=== PATIENT | female | born 1980 | race Caucasian/White ===

== ENCOUNTER 2020-03-23 09:25 | Day surgery (SDC) | payer OTHER ==
[~2020-03-23] VITALS: Ht 162.6 cm; Wt 105.1 kg
[~2020-03-23 09:25] MED LIST: AMITRIPTYLINE H25 M1 PO; DOXYCYCLINE 10100 MG PO; FLOVENT 110MCG7.9 GM IH; HCTZ 25MG TAB25 MG PO; PROTONIX 40MG T40 MG PO; ZOFRAN4 M1 PO
[2020-03-23 10:11] VITALS: BP 154/92; PULSE 106; TEMP 99.1
[2020-03-23] MEDS ORDERED: ACCOLATE 220 MG/1 TA PO (10:28)
[2020-03-23] MEDS ORDERED: AMITRIPTYLINE H50 M1 PO (10:28)
[2020-03-23] MEDS ORDERED: XYZAL5 MG PO (10:30)
[2020-03-23] MEDS ORDERED: [UNRECOGNIZED DRUG - OTHER] PO (10:31)
[2020-03-23] MEDS ORDERED: LYSINE 500500 MG/TAB PO (10:32)
[2020-03-23] MEDS ORDERED: [UNRECOGNIZED DRUG - OTHER] PO (10:33)
[2020-03-23] MEDS ORDERED: VITAMIN B COMPL1 T16 PO (10:34)
[2020-03-23] MEDS ORDERED: [UNRECOGNIZED DRUG - OTHER] PO (10:35)
[2020-03-23] MEDS ORDERED: NATURE'S BL400 IU/ML PO (10:36)
[2020-03-23] MEDS ORDERED: [UNRECOGNIZED DRUG - OTHER] PO (10:37)
[2020-03-23] MEDS ORDERED: VITAMINC1000TA PO (10:37)
[2020-03-23 11:23] VITALS: BP 117/72; PULSE 82; PULSE 84; TEMP 98.8
--- NOTE | 2020-03-23 11:23 | NUR ---
Pt to [facility] via cart from ENDO. Pt awake and alert. Pt denies pain or nausea. Pt ambulates to recliner with stand by assistance. in room. Water and muffin provided per request. Call light within reach.
[2020-03-23 11:31] VITALS: BP 117/77; PULSE 81
--- NOTE | 2020-03-23 11:32 | NUR ---
PT RETURNED PER CART. PT ALERT, ORIENTATED AND SLEEPY. PT DENIES NAUSEA AND STATES DOME CRAMPING IN THE LOWER RIGHT QUADRANT. DENIES SEVERE PAIN. LUNGS CLEAR, HRR, BOWEL SOUNDS PRESENT AND HYPOACTIVE. VSS, AFEBRILE. WILL MONITOR.
[2020-03-23 11:40] VITALS: BP 117/77; PULSE 81
--- NOTE | 2020-03-23 11:40 | NUR ---
Pt continues to rest. Tolerating po food and fluids without difficulties. Call light within reach.
[2020-03-23 11:55] VITALS: BP 119/75; PULSE 82
--- NOTE | 2020-03-23 11:55 | NUR ---
Pt continues to rest and visit with her . Denies needs. Dr. Calderon into consult with pt.
[2020-03-23 12:10] VITALS: BP 125/82; PULSE 79
--- NOTE | 2020-03-23 12:10 | NUR ---
Discharge instructions reviewed. Pt voices understanding. IV site discontinued with all parts intact. Pt up to dress. Call light within reach.
--- NOTE | 2020-03-23 12:30 | NUR ---
Pt escorted to private car via wheel chair. Pt accompanied home by her .
== END 2020-03-23 12:30 | disposition home or self-care (01) ==
LOC: SDCO 09:25
DX: K52.89 Other specified noninfective gastroenteritis and colitis (principal); K62.89 Other specified diseases of anus and rectum; K92.1 Melena; K21.00 Gastro-esophageal reflux disease with esophagitis, without bleeding; R13.12 Dysphagia, oropharyngeal phase; Z88.1 Allergy status to other antibiotic agents; Z88.8 Allergy status to other drugs, medicaments and biological substances; E66.9 Obesity, unspecified; Z68.37 Body mass index [BMI] 37.0-37.9, adult
CPT/HCPCS: J2704; J7030